=== PATIENT | female | born 1985 | race Caucasian/White ===

== ENCOUNTER → 2019-09-07 | Outpatient (CLI) | payer BC ==
--- NOTE | 2019-09-07 15:17 | Diagnostic Imaging Report ---
INDICATION: anatomy survey. TECHNIQUE: Multiple real-time grayscale images were obtained over the gravid uterus. COMPARISON: None available. FINDINGS: There is a single live intrauterine in the transverse position. The placenta is anterior in location, and there is no evidence of previa or placental abruption. The heart rate is 156 beats per minute. The LIAM measures 14.4 cm. biometric data/growth parameters are supplied below. anatomy survey was performed and the following structures are visualized and normal: Cerebellum, cisterna magna, cerebral ventricles, four-chamber heart, urinary bladder, three-vessel cord, umbilical cord insertion, spine, kidneys and extremities. Due to advanced gestational age, the maternal adnexa are suboptimally evaluated. Biometrical measurements are as follows: Biparietal 4.64 cm, age 20 weeks 1 days. Head circumference 17.23 cm, age 19 weeks 6 days. Abdominal circumference 15.33 cm, age 20 weeks 4 days. Femur length 3.53 cm, age 21 weeks 2 days. Sonographic estimate age: 20 weeks 4 days. Sonographic estimated date of delivery: 01/21/2020. Estimated Weight: 370 gm (+/- 54 gm). LMP percentile: 66%. heart rate: 156 beats per minute. number: 1 of 1. IMPRESSION: 1. Single live intrauterine with normal anatomy survey. Dictated by: Dictated on workstation # [id number]
== END ==
LOC: RAD 11:36
PROVIDERS: ATTEND Obstetrics & Gynecology
DX: Z34.92 Encounter for supervision of normal pregnancy, unspecified, second trimester (principal); Z3A.20 20 weeks gestation of pregnancy
CPT/HCPCS: 76805

== ENCOUNTER 2020-01-12 05:35 | Outpatient (RCR) | payer BC ==
[~2020-01-12] VITALS: Ht 157.5 cm; Wt 82.7 kg
[~2020-01-12 05:35] MED LIST: ASCO-262 PO; CHOL10002 PO; FERR256T PO; PREN-53 PO; PYRI100T10 PO
== END 2020-01-12 14:47 | disposition home or self-care (01) ==
LOC: PREOP 05:35
PROVIDERS: ATTEND Obstetrics & Gynecology
DX: Z01.818 Encounter for other preprocedural examination (principal); Z11.59 Encounter for screening for other viral diseases
CPT/HCPCS: 87635

== ENCOUNTER 2020-01-17 06:06 | Inpatient (IN) | payer BC ==
[~2020-01-17] VITALS: Ht 157.5 cm; Wt 83.4 kg
[2020-01-17] VITALS (10 sets, daily range): BP systolic 84–123; BP diastolic 33–81
[~2020-01-17 06:06] MED LIST changes: +CITRIC ACID/SOB CIT (BICITRA) 30 ML UDC ONE; +FAMOTIDINE 20MG/2ML IV (PEPCID) ONE; +LACTATED RINGERS 2,000 ML IV ONE; +METOCLOPRAMIDE INJ 10 MG/2 ML (REGLAN) ONE; +WATER (STERILE) FOR INJECTION 10 ML ONE; +ceFAZolin INJECTION 1,000 MG ONE
--- OUTSIDE RECORDS SUMMARY | 2020-01-17 06:13 | XMS REPORT | Continuity of Care Document ---
Author Organization Unknown Address Unknown Phone Unavailable Allergies Active Description Code Type Severity Reaction Onset Reported/Identified Relationship to Patient Clinical Status Yes ZITHromycin ZITHromycin Drug Allergy Mild nausea/vomiting diarrhea 11/10/[address] ug Allergy Mild N/V/DIARRHEA 04/02/2018 Yes No Known Drug Allergies [id number] Drug Allergy Unknown N/A 01/10/2020 Medications There is no data. Problems Date Dx Coded Attending Type Code Diagnosis Diagnosed By 06/25/1446 DALE GILLIAM DO, Ot Z01.8 18 ENCOUNTER FOR OTHER PREPROCEDURAL EXAMIN 06/25/1446 DALE GILLIAM DO, Ot Z11.5 9 ENCOUNTER FOR SCREENING FOR OTHER VIRAL 11/12/2015 Nicky Cadet MD O14. 03 MILD TO MODERATE PRE-ECLAMPSIA, THIRD TRIMESTER 11/12/2015 Nicky Cadet MD O14. 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 0 PRIMARY INADEQUATE CONTRACTIONS 11/12/2015 Nicky Cadet MD O75. 2 PYREXIA DURING LABOR, NOT ELSEWHERE CLASSIFIED 11/12/2015 Nicky Cadet MD R34 ANURIA AND OLIGURIA 11/12/2015 Nicky Cadet MD Z37. 0 SINGLE LIVE 11/12/2015 Nicky Cadet MD Z3A. 39 39 WEEKS GESTATION OF 04/02/2018 Nicky Cadet MD O34. 219 MATERNAL CARE FOR UNSP TYPE SCAR FROM PREVIOUS HEATHER 04/02/2018 Nicky Cadet MD Z37. 0 SINGLE LIVE 04/02/2018 Nicky Cadet MD Z3A. 39 39 WEEKS GESTATION OF 09/08/2019 GILLIAM DO, DALE C Ot Z34.9 2 ENCNTR FOR SUPRVSN OF NORMAL PREG, UNSP, 09/08/2019 MANE DO, DALE C Ot Z3A.2 0 20 WEEKS GESTATION OF 09/16/2019 MANE DOSEANA C Ot Z34.9 2 ENCNTR FOR SUPRVSN OF NORMAL PREG, UNSP, 09/16/2019 GILLIAM DO, DALE C Ot Z3A.2 0 20 WEEKS GESTATION OF 09/22/2019 GILLIAM DO, DALE C Ot Z34.9 2 ENCNTR FOR SUPRVSN OF NORMAL PREG, UNSP, 09/22/2019 GILLIAM DO, DALE C Ot Z3A.2 0 20 WEEKS GESTATION OF 12/25/2019 MANE DOSEANA C Ot Z34.9 2 ENCNTR FOR SUPRVSN OF NORMAL PREG, UNSP, 12/25/2019 MANE DO, DALE C Ot Z3A.2 0 20 WEEKS GESTATION OF Procedures Code Description Performed By Per formed On [id number] EX TRACTION OF POC, LOW CERVICAL, OPEN APPROACH Nicky Cadet MD 11/12/201571Q47H4 EX TRACTION OF POC, LOW CERVICAL, OPEN APPROACH Nicky Cadet MD 04/02/2018 Results Test Result Range CBC - 11/12/15 07:30 MEAN CELL HGB 27.9 pg 27.0-33.0 MEAN CELL HGB CONCENTRATION 33.3 g/dL 32 .0-37.0 MEAN CELL VOLUME 83.8 fl 80.0-100.0 RED BLOOD CELL 4.44 m/cumm 4.00-6.00 RED CELL DISTRIBUTION WIDTH 14.8 % 11 .0-15.6 WHITE BLOOD CELL 14.6 k/cumm 5.0-10.0 HEMOGLOBIN 12.4 gm/dL 12.0-16.0 HEMATOCRIT 37.2 % 37.0-47.0 PLATELET COUNT 281 k/cumm 150-400 METABOLIC PANEL, COMPREHN - 11/12/15 07: 48 POTASSIUM 4.1 mmol/L 3.5-5.3 EST GFR (MDRD) > 60 mL/min > 59 ANION GAP 10 mmol/L 5-15 EST CrCl (CG) > 60 mL/min > 59 GLUCOSE 86 mg/dL 70-99 CALCIUM 8.3 mg/dL 8.5-10.1 BLOOD UREA NITROGEN 10 mg/dL 7-20 CREATININE 0.7 mg/dL 0.6-1.0 SODIUM 137 mmol/L 135-148 CHLORIDE 105 mmol/L 98-110 AST/SGOT 20 Units/L 10-37 ALT/SGPT 18 Units/L < 66 CARBON DIOXIDE 22 mmol/L 21-32 TOTAL PROTEIN 7.0 gm/dL 6.4-8.2 ALBUMIN 2.6 gm/dL 3.4-5.0 BILI TOTAL 0.2 mg/dL 0.0-1.0 ALKALINE PHOSPHATASE TOTAL 108 IU/L 45- 117 URIC ACID - 11/12/15 07:48 URIC ACID 4.6 mg/dL 2.6-6.0 LACTATE DEHYDROGENASE (LDH/LD) - 6 07:48 LACTATE DEHYDROGENASE (LDH/LD) 217 Units/L 81-234 CORD ARTERIAL BLOOD GAS - 11/12/15 18:45 ARTERIAL CORD BLD BASE EXCESS -3.2 meq/L -7.6-1.3 COMMENT ARTERIAL ARTERIAL CORD BICARBONATE 24.2 meq/L 16. 0-27.1 ARTERIAL CORD BLOOD PCO2 52 mm Hg 32-69 ARTERIAL CORD BLOOD PH 7.28 7.14-7. 40 ARTERIAL CORD BLOOD PO2 12.7 mm Hg 8-33 ARTERIAL CORD BLOOD O2 SAT < 15 % 5-5 9 CORD VENOUS BLOOD GAS - 11/12/15 18:45 VENOUS CORD BLOOD BASE EXCESS -3.4 meq/L -5.8-0.7 COMMENT VENOUS VENOUS CORD BLOOD HCO3 22.2 meq/L 17.4-2 5.4 VENOUS CORD BLOOD PCO2 42 mm Hg 28-57 VENOUS CORD BLOOD PH 7.34 7.23-7.46 VENOUS CORD BLOOD PO2 23 mm Hg 15-42 VENOUS CORD BLOOD O2 SAT 42 % 14-75 UR PROTEIN/CREATININE RATION - 11/12/15 22:00 UR CREATININE COMMENT RANDOM UR PROTEIN COMMENT RANDOM UR TOTAL PROTEIN LEVEL 26.4 mg/dL 0.0-11 .9 UR CREATININE LEVEL 31.6 mg/dL 44-467 UR PROTEIN/CREATININE RATIO 835 mg/gm < 200 CBC - 11/12/15 23:50 MEAN CELL HGB 27.9 pg 27.0-33.0 MEAN CELL HGB CONCENTRATION 32.9 g/dL 32 .0-37.0 MEAN CELL VOLUME 84.8 fl 80.0-100.0 RED BLOOD CELL 3.87 m/cumm 4.00-6.00 RED CELL DISTRIBUTION WIDTH 14.8 % 11 .0-15.6 WHITE BLOOD CELL 16.4 k/cumm 5.0-10.0 HEMOGLOBIN 10.8 gm/dL 12.0-16.0 HEMATOCRIT 32.8 % 37.0-47.0 PLATELET COUNT 245 k/cumm 150-400 METABOLIC PANEL, COMPREHN - 11/13/15 00: 00 POTASSIUM 3.8 mmol/L 3.5-5.3 EST GFR (MDRD) > 60 mL/min > 59 ANION GAP 9 mmol/L 5-15 EST CrCl (CG) > 60 mL/min > 59 GLUCOSE 119 mg/dL 70-99 CALCIUM 7.5 mg/dL 8.5-10.1 BLOOD UREA NITROGEN 10 mg/dL 7-20 CREATININE 0.9 mg/dL 0.6-1.0 SODIUM 136 mmol/L 135-148 CHLORIDE 104 mmol/L 98-110 AST/SGOT 20 Units/L 10-37 ALT/SGPT 15 Units/L < 66 CARBON DIOXIDE 23 mmol/L 21-32 TOTAL PROTEIN 5.3 gm/dL 6.4-8.2 ALBUMIN 1.9 gm/dL 3.4-5.0 BILI TOTAL 0.3 mg/dL 0.0-1.0 ALKALINE PHOSPHATASE TOTAL 83 IU/L 45- 117 URIC ACID - 11/13/15 00:00 URIC ACID 5.2 mg/dL 2.6-6.0 LACTATE DEHYDROGENASE (LDH/LD) - 6 00:00 LACTATE DEHYDROGENASE (LDH/LD) 220 Units/L 81-234 HEMOGLOBIN - 11/13/15 12:45 MEAN CELL VOLUME 85.2 fl 80.0-100.0 HEMOGLOBIN 11.0 gm/dL 12.0-16.0 CBC - 03/31/18 17:00 MEAN CELL HGB 26.0 pg 27.0-33.0 MEAN CELL HGB CONCENTRATION 31.8 g/dL 32 .0-37.0 MEAN CELL VOLUME 81.9 fl 80.0-100.0 MEAN PLATELET VOLUME 9.9 fl 8.5-10.9 RED BLOOD CELL 4.15 m/cumm 4.00-6.00 RED CELL DISTRIBUTION WIDTH 14.0 % 11 .0-15.6 WHITE BLOOD CELL 8.3 k/cumm 5.0-10.0 HEMOGLOBIN 10.8 gm/dL 12.0-16.0 HEMATOCRIT 34.0 % 37.0-47.0 NRBC % 0.0 /100 WBC 0.0-0.0 PLATELET COUNT 267 k/cumm 150-400 HEMOGLOBIN - 04/02/18 19:19 MEAN CELL VOLUME 82.0 fl 80.0-100.0 HEMOGLOBIN 10.5 gm/dL 12.0-16.0 Coronavirus SARS-CoV-2 SO 2019 - 0 07:58 Coronavirus Ab [Units/volume] in Serum Negative Negative Encounters ACCT No. Visit Date/Time Discharge Status Pt. Type Provider Facility Loc./Unit Complaint [id number] 05/05/2019 12:50:00 05/05/2019 23:59: 59 C[facility] [id number] 01/12/2020 05:35:00 020 14:47:00 DIS Outpatient DALE GILLIAM DO [facility] PREOP PREVIOUS [id number] 09/07/2019 11:36:00 020 23:59:59 CLS Outpatient DALE GILLIAM DO [facility] RAD 17 WEEKS GESTATION [id number] 01/17/2020 08:00:00 P EN Preadmit DALE GILLIAM DO P REVIOUS [id number] 04/02/2018 11:04:00 018 16:30:00 DIS Inpatient Chichi NIXON [facility] [place] [id number] 11/12/2015 08:10:00 016 10:45:00 DIS Inpatient Chichi NIXON [facility] NEERAJ [id number] 11/10/2015 21:39:00 016 08:06:00 DIS Emergency Chichi NIXON [facility] MORE [id number] 11/10/2015 02:53:00 016 05:51:00 DIS Emergency Chichi NIXON [facility] MORE
--- NOTE | 2020-01-17 06:16 | NUR ---
VANDANA GOLDEN presented to unit via ambulatory from ED, accompanied by , with c/o PREVIOUS. VANDANA GOLDEN weighed, gowned, voided, and to bed. EFHM and TOCO applied, VS taken. VANDANA GOLDEN oriented to bed controls, call light, TV, heat, and A/C controls.
[2020-01-17] MEDS ORDERED: LACTATED RINGERS 1,000 ML IV PRN (06:38)
[2020-01-17] MEDS ORDERED: METOCLOPRAMIDE INJ 10 MG/2 ML (REGLAN) IV ONE (06:45)
[2020-01-17] MEDS ORDERED: CITRIC ACID/SOB CIT (BICITRA) 30 ML UDC PO ONE (06:45)
[2020-01-17] MEDS ORDERED: ceFAZolin INJECTION 1,000 MG in WATER (STERILE) FOR INJECTION 10 ML IV ONE (06:45)
[2020-01-17] MEDS ORDERED: FAMOTIDINE 20MG/2ML IV (PEPCID) IV ONE (06:45)
[2020-01-17 06:48] LABS: BILIRUBIN,URINE NEGATIVE (NEGATIVE); CLARITY,URINE CLEAR; COLOR,URINE YELLOW; GLUCOSE, URINE (UA) NEGATIVE (NEGATIVE); KETONES,URINE NEGATIVE (NEGATIVE); LEUKOCYTE ESTERASE ,URINE TRACE (NEGATIVE); NITRITE,URINE NEGATIVE (NEGATIVE); PH,URINE 6.5 (5-9); PROTEIN,URINE NEGATIVE (NEGATIVE)
--- NOTE | 2020-01-17 06:56 | NUR ---
lab here drawing labs now.
--- NOTE | 2020-01-17 06:56 | NUR ---
J. Reading TREASURY CONSULTANT here at bedside, pt having anxiety with iv sticks. TREASURY CONSULTANT to start iv.
[2020-01-17 06:58] LABS: BACTERIA,URINE TRACE /HPF; WBC,URINE RARE /HPF
[2020-01-17] MEDS ORDERED: OXYTOCIN PRE-MIX DRIP 1,000 ML IV ONE (07:00)
[2020-01-17] MEDS ORDERED: fentaNYL INJECTION 100 MCG/2 ML AMP ONE (07:00)
[2020-01-17 07:10] LABS: BASOPHILS % (AUTO) 0 % (0-10); EOSINOPHILS # (AUTO) 0.1 10^3/uL (0.0-0.3); EOSINOPHILS % (AUTO) 1 % (0-10); HEMATOCRIT 35 % (35-52); HEMOGLOBIN 11.4 G/DL (11.5-16.0); LYMPHOCYTES # (AUTO) 2.5 X 10^3 (1.0-4.0); LYMPHOCYTES % (AUTO) 32 % (12-44); MEAN CORPUSCULAR HEMOGLOBIN 27 PG (25-34); MEAN CORPUSCULAR HGB CONC 33 G/DL (32-36); MEAN CORPUSCULAR VOLUME 83 FL (80-99); MEAN PLATELET VOLUME 10.3 FL (7.4-10.4); MONOCYTES # (AUTO) 0.7 X 10^3 (0.0-1.0); MONOCYTES % (AUTO) 8 % (0-12); NEUTROPHILS # (AUTO) 4.7 X 10^3 (1.8-7.8); NEUTROPHILS % (AUTO) 59 % (42-75); PLATELET COUNT 236 10^3/uL (130-400); RED CELL DISTRIBUTION WIDTH 15.3 % (10.0-14.5); WHITE BLOOD COUNT 7.9 10^3/uL (4.3-11.0)
[2020-01-17] MEDS: LACTATED RINGERS 1,000 ML IV PRN ×2 (07:10→07:34)
--- NOTE | 2020-01-17 07:23 | Progress Note-Pre Operative ---
Pre-Operative Progress Note H&P Reviewed The H&P was reviewed, patient examined and no changes noted. Date Seen by Provider: Jan 17, 2020 Time Seen by Provider: 07:15 Date H&P Reviewed: Jan 17, 2020 Time H&P Reviewed: 07:00 Pre-Operative Diagnosis: previous section DALE GILLIAM DO Jan 17, 2020 07:23
[2020-01-17] MEDS ORDERED: PHENYLEPHRINE 100 MCG/ML 10 ML (ANESTHESIA) SYR ONE (07:47)
[2020-01-17] MEDS ORDERED: OXYTOCIN PRE-MIX DRIP 500 ML IV SCH (08:54)
[2020-01-17] MEDS ORDERED: MEASLES,MUMPS,RUBELLA 1 EA INJ SC SCH (09:00)
[2020-01-17] MEDS ORDERED: TETANUS,DIPTH,PERTUSS P/F (BOOSTRIX) 0.5 ML VIAL IM SCH (09:00)
[2020-01-17] MEDS ORDERED: morphine INJ 4 MG/ML 1 ML (VIAL/SYRINGE) IVP PRN (09:00)
--- NOTE | 2020-01-17 09:10 | Cesarean Section Operative ---
Procedure Procedure Note Pre-operative Diagnosis: Fariba Kinney is a 34 /Para 3/2 , Gestational Age 39 1/7 weeks with history of previous section Post-operative Diagnosis: same Procedure: Repeat low transverse section Physician: DALE GILLIAM Estimated blood loss: 500 mL Disposition: stable Findings: Viable female , Apgars 9/9, weight 6#14 ounces, intact placenta, 3vc, normal appearing uterus, tubes, and ovaries. Accessory lobe of the placenta was noted. Extensive adhesions of the omentum to fascia, left tube to fascia, thickened fascia Indications:Fariba Kinney is a 34 /Para 3/2 ,Gestational Age 39 1/7 weeks with history of previous section presenting for repeat section Procedure Details: The patient was seen in pre-op and the procedure was discussed with the patient in full, including the risks, benefits, and alternatives. All questions were answered. The patient was taken to the operating room and a time out was performed, verifying patient and procedure. After spinal anesthesia was placed by our anesthesia colleagues, the patient was placed in the dorsal supine with leftward tilt for uterine displacement.~ Her abdomen was then prepped and draped in the typical sterile fashion. A Pfannens tiel skin incision was made using a scalpel and carried down through the underlying fascia. The fascia was incised in the midline and tented up using Peter clamps. On both the inferior and superior fascia side the rectus muscle was dissected off bluntly and sharply using Pinedo scissors. The fascia was very thickened in the midline due to underlying omental adhesions and the omentum was poking through and adherent to the underlying fascia. The muscles and fascia was dissected sharply off and the omentum was dissected off in a sharp and blunt fashion. There was thinning of the fascia in this area, suggesting a concern for future incisional hernia. The peritoneum was identified and entered bluntly in the midline. This was then stretched laterally using manual strength. After entering the abdominal cavity and confirming minimal intraperitoneal adhesions, a large Juan Ramon retractor was placed and the lower uterine segment was visualized. The bladder flap was advanced over the lower uterine segment. A bladder flap was created with the use of Metzenbaum scissors. This took down the previously noted adhesion. ~ A scalpel was utilized to make a low transverse uterine incision. Amniotomy was performed with an Allis clamp with return of clear fluid. The 's head was grasped and brought to the level of the incision. Fundal pressure was applied and was delivered without difficulty. The baby was noted to be in the occiput posterior presentation and the left hand delivered with delivery of the head. The right arm was then flexed across the chest and facilitated delivery of the baby. Mouth and nares were suctioned with bulb suction. After the umbilical cord was clamped and cut, the was handed off to the pediatric staff. A sample of cord blood was then obtained. The placenta was delivered intact via uterine massage. The uterus was cleared of all clots and debris. The uterine incision was closed using 0 Vicryl in a running locked fashion. A second imbricated layer was placed using 0 Vicryl in a running fashion as well. The bilateral tubes and ovaries appeared normal. But there was a benign tubal cyst noted on the left tube and this appeared to be adherent to the anterior peritoneum, but the remainder of the tube appeared normal. The abdominal gutters were cleared of all clots and debris. A final check of the uterine incision showed it to be hemostatic. The peritoneum was closed using 3-0 Vicryl in a running fashion. The fascia was closed with 0 Vicryl in a running fashion. I used 0 PDS to close the defects in the fascia that were concerning for possible hernia (where the omentum had been adherent and was dissected off). The subcutaneous space was hemostatic, and irrigated. The subcutaneous space was closed with 3-0 Vicryl in several single interrupted stitches. The skin was then closed using 4-0 Monocryl in a running subcuticular fashion. The skin edges were reapproximated together and were hemostatic. A pressure dressing was applied. All sponge, lap and needle counts were correct at the end of the procedure per nursing. Vitals - Labs Vital Signs - I&O Vital Signs Date Time Temp Pulse Resp B/P (MAP) Pulse Ox O2 Delivery O2 Flow Rate FiO2 01/17/20 06:25 36.4 95 18 100 Room Air Labs Laboratory Tests 01/17/20 06:25: Urine Color YELLOW, Urine Clarity CLEAR, Urine pH 6.5, Urine Specific [place] 1.010L, Urine Protein NEGATIVE, Urine Glucose (UA) NEGATIVE, Urine Ketones NEGATIVE, Urine Nitrite NEGATIVE, Urine Bilirubin NEGATIVE, Urine Urobilinogen 0.2, Urine Leukocyte Esterase TRACEH, Urine RBC (Auto) NEGATIVE, Urine RBC NONE, Urine WBC RARE, Urine Squamous Epithelial Cells 5-10, Urine Crystals NONE, Urine Bacteria TRACE, Urine Casts NONE, Urine Mucus NEGATIVE, Urine Culture Indicated NO 01/17/20 06:58: White Blood Count 7.9, Red Blood Count 4.22L, Hemoglobin 11.4L, Hematocrit 35, Mean Corpuscular Volume 83, Mean Corpuscular Hemoglobin 27, Mean Corpuscular Hemoglobin Concent 33, Red Cell Distribution Width 15.3H, Platelet Count 236, Mean Platelet Volume 10.3, Neutrophils (%) (Auto) 59, Lymphocytes (%) (Auto) 32, Monocytes (%) (Auto) 8, Eosinophils (%) (Auto) 1, Basophils (%) (Auto) 0, Neutrophils # (Auto) 4.7, Lymphocytes # (Auto) 2.5, Monocytes # (Auto) 0.7, Eosinophils # (Auto) 0.1, Basophils # (Auto) 0.0 DALE GILLIAM DO Jan 17, 2020 9:10 am
[2020-01-17] MEDS ORDERED: BUPIVACAINE 0.5% 30 ML (SENSORCAINE) VIAL ONE (09:20)
--- NOTE | 2020-01-17 10:00 | NUR ---
pt transferred to room 307 via bed accompanied by rn, s.o. and infant. pt and s.o. oriented to room and call light. packet explained. iv pitocin to pump. scd's activated. toradol given. vs taken. fresh ice water provided. pt denies further needs or concerns.
[2020-01-17] MEDS: KETOROLAC 30 MG/ML VIAL IV SCH ×3 (10:13→22:37)
[2020-01-17] MEDS: ACETAMINOPHEN 500 MG TAB (TYLENOL) PO SCH ×2 (12:17→19:57)
--- NOTE | 2020-01-17 14:45 | NUR ---
pt assisted up at side of bed. ambulates to bathroom accompanied by this rn. +void without difficulty. pericare performed, fresh vpad and underwear on. assisted back to bed without incident.
[2020-01-17] MEDS: DOCUSATE SODIUM 100 MG (COLACE) CAP PO SCH ×2 (19:26→19:57)
[2020-01-17] MEDS: CATHETER FLUSH 10 ML SYR IV SCH ×2 (19:27→22:37)
[2020-01-18 01:00] VITALS: BP 112/64
[2020-01-18 04:48] VITALS: BP 112/75
[2020-01-18] MEDS: ACETAMINOPHEN 500 MG TAB (TYLENOL) PO SCH ×3 (04:48→21:04)
[2020-01-18] MEDS: KETOROLAC 30 MG/ML VIAL IV SCH (04:48)
[2020-01-18] MEDS: CATHETER FLUSH 10 ML SYR IV SCH (04:48)
[2020-01-18] MEDS ORDERED: MILK OF MAGNESIA 400 MG/5 ML 30 ML UDC PO PRN (05:00)
[2020-01-18 05:55] LABS: BASOPHILS % (AUTO) 0 % (0-10); EOSINOPHILS % (AUTO) 0 % (0-10); HEMATOCRIT 32 % (35-52); HEMOGLOBIN 10.4 G/DL (11.5-16.0); LYMPHOCYTES # (AUTO) 1.9 X 10^3 (1.0-4.0); LYMPHOCYTES % (AUTO) 16 % (12-44); MEAN CORPUSCULAR HEMOGLOBIN 27 PG (25-34); MEAN CORPUSCULAR HGB CONC 33 G/DL (32-36); MEAN CORPUSCULAR VOLUME 84 FL (80-99); MEAN PLATELET VOLUME 10.2 FL (7.4-10.4); MONOCYTES # (AUTO) 0.8 X 10^3 (0.0-1.0); MONOCYTES % (AUTO) 7 % (0-12); NEUTROPHILS # (AUTO) 9.3 X 10^3 (1.8-7.8); NEUTROPHILS % (AUTO) 77 % (42-75); PLATELET COUNT 202 10^3/uL (130-400); RED CELL DISTRIBUTION WIDTH 15.3 % (10.0-14.5); WHITE BLOOD COUNT 12.1 10^3/uL (4.3-11.0)
[2020-01-18 08:50] VITALS: BP 104/65
--- NOTE | 2020-01-18 08:50 | NUR ---
initial shift assessment completed, see interventions for further
--- NOTE | 2020-01-18 10:44 | Anesthesia-Regional Post-Op ---
Regional Patient Condition Mental Status: Alert, Oriented x3 Circulation: Same as Pre-Op Headache: Absent Sensation: Full Recovery Motor Block: Absent Post Op Complications Complications None Follow Up Care/Instructions Patient Instructions None needed. Anesthesia/Patient Condition Patient is doing well, no complaints, stable vital signs, no apparent adverse anesthesia problems. No complications reported per nursing. D/C home per [facility] Criteria: No AURELIA ALTMAN CRNA Jan 18, 2020 10:44
[2020-01-18] MEDS: IBUPROFEN 600 MG (MOTRIN) TAB PO SCH ×2 (11:35→18:30)
[2020-01-18] MEDS: DOCUSATE SODIUM 100 MG (COLACE) CAP PO SCH ×2 (11:35→21:04)
[2020-01-18 13:41] VITALS: BP 104/71
--- NOTE | 2020-01-18 18:29 | NUR ---
[place] IM given in Lt.GM. pt tolerated well.
--- NOTE | 2020-01-18 19:18 | NUR ---
report given to next shift.
[2020-01-18 21:00] VITALS: BP 110/69
[2020-01-19 01:46] VITALS: BP 103/70
[2020-01-19] MEDS: IBUPROFEN 600 MG (MOTRIN) TAB PO SCH ×3 (01:46→10:04)
--- NOTE | 2020-01-19 08:43 | Postpartum Progress Note ---
Post Op Post-operative Day #2 s/p RLTCS Subjective: Patient is without complaints. Ambulating, voiding after drew removed. Tolerating a regular diet without nausea or vomiting. Normal lochia. Pain is well controlled with oral pain medications. Passing flatus. breast feeding. Objective: Laboratory Tests Test 01/18/20 05:40 Range/Units White Blood Count 12.1 H 4.3-11.0 10^3/uL Red Blood Count 3.82 L 4.35-5.85 10^6/uL Hemoglobin 10.4 L 11.5-16.0 G/DL Hematocrit 32 L 35-52 % Mean Corpuscular Volume 84 80-99 FL Mean Corpuscular Hemoglobin 27 25-34 PG Mean Corpuscular Hemoglobin Concent 33 32-36 G/DL Red Cell Distribution Width 15.3 H 10.0-14.5 % Platelet Count 202 130-400 10^3/uL Mean Platelet Volume 10.2 7.4-10.4 FL Neutrophils (%) (Auto) 77 H 42-75 % Lymphocytes (%) (Auto) 16 12-44 % Monocytes (%) (Auto) 7 0-12 % Eosinophils (%) (Auto) 0 0-10 % Basophils (%) (Auto) 0 0-10 % Neutrophils # (Auto) 9.3 H 1.8-7.8 X 10^3 Lymphocytes # (Auto) 1.9 1.0-4.0 X 10^3 Monocytes # (Auto) 0.8 0.0-1.0 X 10^3 Eosinophils # (Auto) 0.0 0.0-0.3 10^3/uL Basophils # (Auto) 0.0 0.0-0.1 10^3/uL VS - Last 72 Hours, by Label 01/17/20 01/17/20 01/17/20 01/17/20 06:25 09:04 09:19 09:34 Temp 36.4 36.7 36.2 36.3 Pulse 95 Resp 18 21 21 16 B/P (MAP) 95/73 (80) 100/33 (55) 84/52 (63) Pulse Ox 100 100 100 100 O2 Delivery Room Air Room Air Room Air Room Air 01/17/20 01/17/20 01/17/20 01/17/20 09:49 09:59 10:15 14:30 Temp 36.4 36.3 36.4 36.8 Pulse 92 100 Resp 20 20 18 18 B/P (MAP) 95/48 (64) 93/77 (82) 89/55 (66) 106/62 (77) Pulse Ox 100 100 O2 Delivery Room Air Room Air 01/17/20 01/17/20 01/18/20 01/18/20 17:01 19:57 01:00 04:48 Temp 36.3 36.5 36.8 37.0 Pulse 84 98 92 109 Resp 18 18 18 18 B/P (MAP) 123/81 (95) 110/74 (86) 112/64 (80) 112/75 (87) Pulse Ox 99 100 99 99 O2 Delivery Room Air Room Air Room Air Room Air 01/18/20 01/18/20 01/18/20 01/19/20 08:50 13:41 21:00 01:46 Temp 36.4 36.6 36.5 36.6 Pulse 106 112 94 80 Resp 18 18 18 18 B/P (MAP) 104/65 (78) 104/71 (82) 110/69 (83) 103/70 (81) Pulse Ox 98 98 98 98 O2 Delivery Room Air Room Air Room Air Room Air Physical Exam: General - Alert and oriented, no apparent distress Abdomen - Soft, appropriately tender to palpation, non-distended, fundus firm at umbilicus Incision - clean, dry and intact; no erythema or induration, no drainage Extremities - no edema, negative Maria Dolores's bilaterally [] Assessment: [] post-operative day # [], status post []. Recovering well, hemodynamically stable Acute blood loss anemia [] Plan: Routine post-operative care. Encourage breast feeding. Encourage ambulation. VTE prophylaxis: SCDs. Ferrous sulfate supplementation. Plan for discharge [] Vitals - Labs Vital Signs - I&O Vital Signs Date Time Temp Pulse Resp B/P (MAP) Pulse Ox O2 Delivery O2 Flow Rate FiO2 01/19/20 01:46 36.6 80 18 103/70 (81) 98 Room Air 01/18/20 21:00 36.5 94 18 110/69 (83) 98 Room Air 01/18/20 13:41 36.6 112 18 104/71 (82) 98 Room Air 01/18/20 08:50 36.4 106 18 104/65 (78 98 Room Air I & O 01/19/20 07:00 Intake Total 2200 ml Balance 2200 ml Labs Microbiology 01/17/20 MRSA Screen - Final, Complete MRSA not isolated DALE GILLIAM DO Jan 19, 2020 08:43
[2020-01-19] MEDS ORDERED: OXYC5TAB96 PO (08:45)
[2020-01-19] MEDS ORDERED: IBUP-844 PO (08:45)
[2020-01-19] MEDS ORDERED: ACET-93 PO (08:45)
[2020-01-19] MEDS ORDERED: DCS100C PO (08:45)
--- NOTE | 2020-01-19 08:47 | Discharge Inst-Women's Service ---
Discharge Inst-Women's Serv Depart Medication/Instructions New, Converted or Re-Newed RX: Transmitted to Pharmacy (and on chart) Instructions nothing in the vagina for 6 weeks Final Diagnosis previous section Problems Reviewed?: Yes Consults/Follow Up Additional Follow Up: Yes (1 week with Ivania for incision check and 6 week pp exam) Activity Activity: Activity as Tolerated Driving Instructions: No Driving for 1 Week NO SMOKING: NO SMOKING Nothing Inside Vagina: No Douching, No [place], No Tampons Diet Discharge Diet: No Restrictions Symptoms to Report to : Bleeding Excessive, Pain Increased, Fever Over 101 Degrees F, Vaginal Bleeding Increase, Cramps in Feet or Legs, Vaginal Discharge Foul For Any Problems or Questions: Contact Your Physician Skin/Wound Care Infection Signs and Symptoms: Increased Redness, Foul Odor of Wound, Increased Drainage, Skin Itchy or Has a Rash, Increased Swelling, Temperature Above 101 F Operative Area Clean and Dry: Keep Incision Clean/Dry Stitches/[place]/Dermabond: Dermabond Bathing Instructions: DALE Bello DO Jan 19, 2020 08:47
[2020-01-19] MEDS: DOCUSATE SODIUM 100 MG (COLACE) CAP PO SCH (10:04)
[2020-01-19 10:05] VITALS: BP 108/69
[2020-01-19] MEDS: ACETAMINOPHEN 500 MG TAB (TYLENOL) PO SCH (10:05)
--- NOTE | 2020-01-19 10:12 | NUR ---
dismissal instructions given, verbalizes understanding. reviewed follow up appointments and Rx's. signature page signed, placed on chart.
--- NOTE | 2020-01-19 12:25 | NUR ---
pt dismissed via w/c with BURT Maza, infant and s/o @ side. secured in rear facing car seat. pt stable with no sx's of distress noted.
== END 2020-01-19 12:25 | disposition home or self-care (01) | DRG 787 ==
LOC: LDRP 06:06
PROVIDERS: ADMIT Obstetrics & Gynecology; ATTEND Obstetrics & Gynecology
PROC: 10D00Z1 Extraction of Products of Conception, Low, Open Approach (ICD-10-PCS; principal; 2020-01-17 07:34)
DX: O34.211 Maternal care for low transverse scar from previous cesarean delivery (principal); D62 Acute posthemorrhagic anemia; Z37.0 Single live birth; Z3A.39 39 weeks gestation of pregnancy; O99.03 Anemia complicating the puerperium
CPT/HCPCS: 36415; 81000; 83033; 85025; 86850; 86900; 86901; 87081; 94664